=== PATIENT | female | born 1950 | race Two or more races ===

== ENCOUNTER → 2020-03-21 | Emergency (ER) | payer OTHER ==
[~2020-03-21] VITALS: Ht 152.4 cm; Wt 117.0 kg
[~2020-03-21] MED LIST: ALPRAZOLAM0.5 M1 PO; BRILINTA60 MG PO; CRESTOR5 MG PO; DIOVAN160 M1 PO; EUCERIN CREME120 GM TP; GABAPENTIN800 MG PO; PANTOPRAZOLE SO40 MG PO; PREDNISOLONE SO10 MG PO; SYMBICORT 16010.2 GM IH; SYMBICORT 80/10.2 GM IH; [UNRECOGNIZED DRUG - OTHER] PO
== END | disposition home or self-care (01) ==
LOC: ER 11:05
DX: K29.70 Gastritis, unspecified, without bleeding (principal)

== ENCOUNTER 2020-03-30 09:04 | Emergency (ER) | payer OTHER ==
[~2020-03-30] VITALS: Ht 152.4 cm; Wt 114.3 kg
[2020-03-30] MEDS ORDERED: WELLBUTRIN XL150 M1 (09:44)
[2020-03-30] MEDS ORDERED: HUMALOG100 UNIT/1 (09:45)
[2020-03-30] MEDS ORDERED: FOLIC ACID0.8 M1 (09:45)
[2020-03-30] MEDS ORDERED: DILTIAZEM ER120 M2 (09:46)
[2020-03-30] MEDS ORDERED: ABATINEX680 MG (09:46)
[2020-03-30] MEDS ORDERED: ISORDIL TITRADOS5 MG (09:46)
[2020-03-30] MEDS ORDERED: XANAX1 MG (09:47)
== END 2020-03-30 14:25 | disposition home or self-care (01) ==
LOC: ER 09:04
DX: R10.32 Left lower quadrant pain (principal); R10.12 Left upper quadrant pain; R45.83 Excessive crying of child, adolescent or adult; F32.89 Other specified depressive episodes

== ENCOUNTER 2020-05-05 07:43 | Day surgery (SDC) | payer OTHER ==
[~2020-05-05 07:43] MED LIST changes: +ABATINEX680 MG; +DILTIAZEM ER120 M2; +FOLIC ACID0.8 M1; +HUMALOG100 UNIT/1; +ISORDIL TITRADOS5 MG; +WELLBUTRIN XL150 M1; +XANAX1 MG
== END 2020-05-05 12:55 | disposition home or self-care (01) ==
LOC: AMB-ENDOS 07:43 → ADM 12:45 → AMB-ENDOS 12:55
PROVIDERS: ATTEND Surgery
DX: D12.2 Benign neoplasm of ascending colon (principal); D13.1 Benign neoplasm of stomach; D13.2 Benign neoplasm of duodenum; K44.9 Diaphragmatic hernia without obstruction or gangrene

== ENCOUNTER 2020-05-16 09:10 | Emergency (ER) | payer OTHER ==
[~2020-05-16] VITALS: Ht 152.4 cm; Wt 111.6 kg
[2020-05-16] MEDS ORDERED: TRULICITY1.5 MG/0.5 SQ (09:27)
[2020-05-16] MEDS ORDERED: PROAIR HFA8.5 GM IH (09:28)
[2020-05-16] MEDS ORDERED: TRELEGY ELLIPT1 EACH IH (09:28)
[2020-05-16] MEDS ORDERED: METFORMIN HCL500 M1 PO (09:28)
[2020-05-16] MEDS ORDERED: BUPROPION XL300 MG PO (09:29)
[2020-05-16] MEDS ORDERED: MIRALAX510 GM PO (09:29)
== END 2020-05-16 15:35 | disposition home or self-care (01) ==
LOC: ER 09:10
DX: K57.32 Diverticulitis of large intestine without perforation or abscess without bleeding (principal); R10.84 Generalized abdominal pain

== ENCOUNTER 2020-07-03 12:20 | Emergency (ER) | payer OTHER ==
[~2020-07-03] VITALS: Ht 152.4 cm; Wt 105.2 kg
[~2020-07-03 12:20] MED LIST changes: +BUPROPION XL300 MG PO; +METFORMIN HCL500 M1 PO; +MIRALAX510 GM PO; +PROAIR HFA8.5 GM IH; +TRELEGY ELLIPT1 EACH IH; +TRULICITY1.5 MG/0.5 SQ
[2020-07-03] MEDS ORDERED: ZOFRAN8 MG PO (15:57)
[2020-07-03] MEDS ORDERED: CARAFATE1 GM PO (15:57)
== END 2020-07-03 16:18 | disposition home or self-care (01) ==
LOC: ER 12:20
DX: K29.60 Other gastritis without bleeding (principal); Z20.828 Contact with and (suspected) exposure to other viral communicable diseases